=== PATIENT | female | born 1950 | race African-American/Black ===

== ENCOUNTER 2025-07-10 15:40 | Outpatient (AMB) | payer MEDICARE, OTHER, SELFPAY ==
[2025-07-10 16:03] VITALS: BMI 27.1
--- NOTE | 2025-07-10 16:03 | A.PHYSOV ---
Vital Signs 07/10/25 16:03 Height 5 ft 3 in Weight 153 lb BMI 27.1 Intake Visit Reasons: 3M Intake Note: Patient is a 74 year old female here for keft shoulder injection. 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 Allergies lisinopril (LISINOPRIL) Allergy (Intermediate, Verified 07/10/25 16:06) RASH/COUGH PFSH Surgical History Hx of tonsillectomy H/O: hysterectomy Social History Alcohol intake: current Alcohol intake frequency: holidays/special occasions only Patient Tobacco Use Status: Never used Tobacco Current occupational status: retired Physical Exam Vital Signs: BMI result Body Mass Index 27.1 Office Procedures AMB Knee Injection AMB Knee Injection Procedure Details: Left Knee injection: The risks, benefits and complications of the left knee injection were discussed with the patient including but not limited to increased serum glucose, infection, nerve pain, fat atrophy, pigment augmentation, bleeding and pain. All questions were answered to the patient's satisfaction. Verbal consent was obtained. The patient was eager to proceed. Using aseptic technique with Betadine, ethyl chloride was then used to desensitize the skin. Using a 22-gauge needle 40 mg of Kenalog and 3 mL 2% lidocaine were injected into the knee joint. A Band-Aid was applied. Patient tolerated the procedure well without immediate complication. Postinjection instructions were given. Knee Injection - : Left All charges added?: Procedure code (CPT) selection complete AMB Shoulder Injection AMB Shoulder Injection Procedure Details: Left Glenohumeral joint injection: The patient was educated about risks, complications and benefits including but not limited to increased serum glucose, infection, nerve damage, bleeding, tendon/ligament damage and pain. We agree with a glenohumeral injection is the next best step in the treatment plan. Verbal consent was obtained. Using aseptic technique, the skin was cleansed with Betadine. Ethyl chloride was used to desensitize the skin. Using a posterior approach, 40 mg of Kenalog and 3 mL 2% lidocaine were injected using a 25-gauge inch and a half needle into the joint. The patient tolerated the procedure well without immediate complication. Postinjection instructions were given. Shoulder Injection - : Left All charges added?: Procedure code (CPT) selection complete Office Meds Kenalog 40 mg/mL suspension for injection Performing Provider: HEBERT Omer [facility] Administered by: HEBERT Omer on 07/10/25 16:24 Dose Route Admin Location Dispensed Lot Number Expiration Date [facility] [employer] 40 mg intra-articular 1 mL [id number] [employer] Total Dispensed Waste 1 mL 0 % lidocaine (PF) 20 mg/mL (2 %) injection solution Performing Provider: HEBERT Omer Performing [facility] Administered by: HEBERT Omer on 07/10/25 16:24 Dose Route Admin Location Dispensed Lot Number Expiration Date [facility] [employer] 60 mg intra-articular 50 mL [id number] Total Dispensed Waste 50 mL 0 % Kenalog 40 mg/mL suspension for injection Performing Provider: HEBERT Omer Performing Location: [facility] Administered by: HEBERT Omer on 07/10/25 16:24 Dose Route Admin Location Dispensed Lot Number Expiration Date [facility] [employer] 40 mg intra-articular 1 mL [address]-9 [employer] Total Dispensed Waste 1 mL 0 % lidocaine (PF) 20 mg/mL (2 %) injection solution Performing Provider: HEBERT Omer [facility] Administered by: HEBERT Omer on 07/10/25 16:24 Dose Route Admin Location Dispensed Lot Number Expiration Date [facility] [employer] 60 mg intra-articular 50 mL [id number] Total Dispensed Waste 50 mL 0 % Assessment & Plan Assessment & Plan (1) Primary osteoarthritis, left shoulder: Code(s): M19.012 - Primary osteoarthritis, left shoulder Category: Medical (2) Osteoarthritis of left knee: Code(s): M17.12 - Unilateral primary osteoarthritis, left knee Category: Medical Qualifiers: Osteoarthritis type: primary Qualified Code(s): M17.12 - Unilateral primary osteoarthritis, left knee Plan Ms. Tejeda is a 74-year-old female seen in evaluation today for left shoulder and knee osteoarthritis. Today she consented to left glenohumeral joint and knee injection. She was given post-injection instructions, recommend: Moist heat compresses for 15 minutes up to 5 times daily. Continue low-impact activities such as walking, biking and swimming. Follow-up with our office as needed. Thank you for allowing me to participate in the care of your patient. Orders: Orders AMB Shoulder Injection Today M19.012 - Primary osteoarthritis, left shoulder AMB Knee Injection Today M17.12 - Unilateral primary osteoarthritis, left knee, M19.012 - Primary osteoarthritis, left shoulder Coding Level of Care Code Procedure Only Diagnoses Primary osteoarthritis, left shoulder M19.012 Primary osteoarthritis of left knee M17.12 Osteoarthritis type: primary CPT Codes AMB Knee Injection - Hip/Bursa Injection - 38068: Left ([id number]) AMB Shoulder Injection - Hip/Bursa Injection - 95806: Left ([id number])
--- OUTSIDE RECORDS SUMMARY | 2025-07-10 21:47 | XMS_ITS ---
Author Name [facility] Organization Unknown Care Team Organization Name Specialty Phone Email Start Date End Da te [facility] 03/26/2025 [facility] 06/14/2022 03/25/2024
== END 2025-07-10 16:24 | disposition home or self-care (01) ==
LOC: HO.HPHYS 15:40
PROVIDERS: PCP Pediatrics; Visit Provider Physician Assistant
DX: M19.012 Primary osteoarthritis, left shoulder (principal); M17.12 Unilateral primary osteoarthritis, left knee
CPT/HCPCS: 20610

== ENCOUNTER → 2025-07-10 15:40 | Outpatient (BNVA) | payer MEDICARE, OTHER, SELFPAY | PROVIDERS: PCP Pediatrics; Visit Provider Physician Assistant | DX: M19.012 Primary osteoarthritis, left shoulder (principal); M17.12 Unilateral primary osteoarthritis, left knee | CPT/HCPCS: 20610; J2003; J3301 ==